=== PATIENT | female | born 1995 | race African-American/Black ===

== ENCOUNTER 2016-10-26 21:08 | Emergency (ER) | payer MEDICAID, OTHER ==
[~2016-10-26] VITALS: Ht 162.6 cm; Wt 81.6 kg
[~2016-10-26 21:08] MED LIST: ADVAIR 100-501 EACH INH; ALBUTEROL SULF8.5 GM INH; ALBUTEROL2.5 MG/3 M INH; AUGMENTIN 875-1 EAC1 ORAL; CYCLOBENZAPRINE10 MG ORAL; FLONASE1 SPRAYS NASAL; IBUPROFEN600 MG ORAL; NORCO 5-325 TA1 EACH ORAL; PREDNISONE20 MG PO; SINGULAIR10 MG ORAL
[2016-10-26 21:15] VITALS: BP 116/70
[2016-10-26] MEDS ORDERED: PREDNISONE20 MG ORAL (21:34)
[2016-10-26] MEDS ORDERED: ALBUTEROL SULF8.5 GM INH (21:34)
[2016-10-26] MEDS ORDERED: ALBUTEROL2.5 MG/3 M HHN (21:34)
[2016-10-26 21:35] VITALS: BP 112/72
--- NOTE | 2016-10-26 21:35 | Emergency Room Report ---
History of Present Illness General Chief Complaint: Asthma Source: Patient Present Illness HPI This is a 20-year-old female with a history of asthma. She has a cold recently and her asthma is acting up. Better with her inhaler and nebulizer machine. She is almost out of her medication. Denies any fever or chills. Denies any nausea vomiting. Worse with exertion. Worse with deep coughing. Denies any other complaint Allergies: Coded Allergies: No Known Allergies (Unverified , 12/15/11) Patient History Past Medical History: see triage record, old chart reviewed Past Surgical History: other Pertinent Family History: none Social History: Denies: smoking Last Menstrual Period: 10/08/16 Now: No Immunizations: other Reviewed Nursing Documentation: PMH: Agreed, PSxH: Agreed Nursing Documentation-PMH Past Medical History: No History, Except For Hx Asthma: Yes Review of Systems Eye: Denies: eye pain, blurred vision ENT: Denies: ear pain, nose congestion, throat swelling Respiratory: Reports: cough, shortness of breath Cardiovascular: Denies: chest pain, palpitations Gastrointestinal: Denies: abdominal pain, diarrhea, nausea, vomiting Musculoskeletal: Denies: back pain, joint pain Skin: Denies: rash Neurological: Denies: headache, numbness Endocrine: Denies: increased thirst, increased urine Hematologic/Lymphatic: Denies: easy bruising All Other Systems: negative except mentioned in HPI Physical Exam Vital Signs Date Time Temp Pulse Resp B/P (MAP) Pulse Ox O2 Delivery O2 Flow Rate FiO2 10/26/16 21:12 98.8 97 20 110/75 98 Room Air vitals normal Sp02 EP Interpretation: reviewed, normal General Appearance: well appearing, no apparent distress, alert Head: normocephalic, atraumatic Eyes: bilateral eye PERRL, bilateral eye EOMI ENT: hearing grossly normal, normal pharynx Neck: full range of motion, supple, no meningismus Respiratory: chest non-tender, lungs clear, normal breath sounds Cardiovascular #1: regular rate, rhythm, no murmur Gastrointestinal: normal bowel sounds, non tender, no mass, no organomegaly, no bruit, non-distended Musculoskeletal: back normal, gait/station normal, normal range of motion Psychiatric: mood/affect normal Skin: warm/dry Medical Decision Making Diagnostic Impression: Primary Impression: Asthma attack Additional Impression: URI (upper respiratory infection) Qualified Codes: J06.9 - Acute upper respiratory infection, unspecified; B97.89 - Other viral agents as the cause of diseases classified elsewhere ER Course Patient presents with asthma exacerbation secondary to viral illness. She's not wheezing right now. We'll refill her medication. Started on steroid. No evidence of pneumonia. We'll discharge home. Last Vital Signs Date Time Temp Pulse Resp B/P (MAP) Pulse Ox O2 Delivery O2 Flow Rate FiO2 10/26/16 21:12 98.8 97 20 110/75 98 Room Air Status: improved Disposition: HOME, SELF-CARE Condition: Stable Scripts Prednisone* (PREDNISONE*) 20 Mg Tablet 60 MG ORAL DAILY, #5 TAB Prov: LUCIUS MEREDITH M.D. 10/26/16 Albuterol Sulfate* (ALBUTEROL SULFATE HHN*) 2.5 Mg/3 Ml Vial.neb 2.5 MG HHN Q4H Y for Shortness of Breath, #25 VIAL Prov: LUCIUS MEREDITH M.D. 10/26/16 Albuterol Sulfate* (ALBUTEROL SULFATE MDI*) 8.5 Gm Hfa.aer.ad 2 PUFF INH Q4H Y for cough/wheezing, #1 EA 0 Refills Prov: LUCIUS MEREDITH M.D. 10/26/16 Patient Instructions: Asthma, Adult Additional Instructions: Followup with your DrМарина in 7 days. Return if symptom worsen. LUCIUS MEREDITH M.D. Oct 26, 2016 21:35
[2016-10-26 21:40] VITALS: BP 112/72
== END 2016-10-26 21:40 | disposition home or self-care (01) ==
LOC: EMR 21:25
DX: J45.901 Unspecified asthma with (acute) exacerbation (principal); J06.9 Acute upper respiratory infection, unspecified
CPT/HCPCS: 99284

== ENCOUNTER 2018-02-05 15:47 | Emergency (ER) | payer MEDICAID ==
[~2018-02-05] VITALS: Ht 165.1 cm; Wt 63.5 kg
[~2018-02-05 15:47] MED LIST changes: +ALBUTEROL2.5 MG/3 M HHN; +PREDNISONE20 MG ORAL
[2018-02-05] MEDS ORDERED: ADVAIR 250-501 EACH INH (15:58)
[2018-02-05 16:00] VITALS: BP 107/61
[2018-02-05] MEDS ORDERED: Methocarbamol 500mg tab ORAL ONE (16:15)
[2018-02-05] MEDS ORDERED: traMADol 50mg tab ORAL ONE (16:15)
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
[2018-02-05 16:47] LABS: APPEARANCE,URINE CLEAR; BILIRUBIN, URINE 1+ (NEGATIVE); COLOR,URINE BROWN; GLUCOSE, URINE (UA) NEGATIVE (NEGATIVE); KETONES,URINE 3+ (NEGATIVE); LEUKOCYTE ESTERASE ,URINE 1+ (NEGATIVE); NITRITE,URINE NEGATIVE (NEGATIVE); PH,URINE 6 (4.5-8.0); PROTEIN,URINE 2+ (NEGATIVE); UROBILINOGEN,URINE 4 MG/DL (0.0-1.0)
[2018-02-05] MEDS ORDERED: LIDOCAINE700 M1 TP (17:42)
[2018-02-05] MEDS ORDERED: ALBUTEROL2.5 MG/3 M INH (17:42)
[2018-02-05] MEDS ORDERED: ROBAXIN500 MG PO (17:42)
[2018-02-05] MEDS ORDERED: PREDNISONE20 MG ORAL (17:42)
[2018-02-05] MEDS ORDERED: ALBUTEROL SULF8.5 GM INH (17:42)
[2018-02-05] MEDS ORDERED: TYLENOL EXTRA500 MG ORAL (17:42)
[2018-02-05 17:49] VITALS: BP 108/65
== END 2018-02-05 17:51 | disposition home or self-care (01) ==
LOC: EMR 16:23
DX: M54.9 Dorsalgia, unspecified (principal); J45.909 Unspecified asthma, uncomplicated
CPT/HCPCS: 81003; 99283

== ENCOUNTER 2018-09-29 14:48 | Emergency (ER) | payer MEDICAID ==
[~2018-09-29] VITALS: Ht 165.1 cm; Wt 64.9 kg
[~2018-09-29 14:48] MED LIST changes: +ADVAIR 250-501 EACH INH; +LIDOCAINE700 M1 TP; +ROBAXIN500 MG PO; +TYLENOL EXTRA500 MG ORAL
--- NOTE | 2018-09-29 15:07 | NUR ---
ED Nurse Note: Patient walked in to ER with her boyfriend due to vaginal bleeding. Stated that 18 weeks , and had sexual intercorse yesterday, after that she started bleed. Patient changed 1 pad over the night. AAO x4, VSS at this time, skin is dry warm to touch.
[2018-09-29 15:45] LABS: APPEARANCE,URINE CLEAR; BILIRUBIN, URINE NEGATIVE (NEGATIVE); COLOR,URINE PALE YELLOW; GLUCOSE, URINE (UA) NEGATIVE (NEGATIVE); KETONES,URINE NEGATIVE (NEGATIVE); LEUKOCYTE ESTERASE ,URINE NEGATIVE (NEGATIVE); NITRITE,URINE NEGATIVE (NEGATIVE); PH,URINE 7 (4.5-8.0); PROTEIN,URINE NEGATIVE (NEGATIVE); UROBILINOGEN,URINE NORMAL MG/DL (0.0-1.0)
--- NOTE | 2018-09-29 15:47 | Emergency Room Report ---
History of Present Illness General Chief Complaint: Complications Source: Patient Present Illness HPI 22 YO Female presents to the ED c/o vaginal bleeding since last night, acute onset after having "rough intercourse" while at 18 weeks . She denies pain. Pt. denies N/V/F/C. Pt. reports using one SA pad last night and bleeding has decreased to spotting now. She is . Denies dysuria, hematuria, frequency or urgency. No other aggravating or relieving factors at this time. She denies cramping/contractions. Allergies: Coded Allergies: No Known Allergies (Unverified , 12/15/11) Patient History Past Medical History: see triage record Past Surgical History: none Pertinent Family History: none Last Menstrual Period: 18 week Now: Yes Reviewed Nursing Documentation: PMH: Agreed; PSxH: Agreed Nursing Documentation-PMH Past Medical History: No History, Except For Hx Asthma: Yes Review of Systems All Other Systems: negative except mentioned in HPI Physical Exam Vital Signs Date Time Temp Pulse Resp B/P (MAP) Pulse Ox O2 Delivery O2 Flow Rate FiO2 09/29/18 14:54 98.8 106 20 119/51 (73) 98 Room Air Sp02 EP Interpretation: reviewed, normal General Appearance: no apparent distress, alert, GCS 15, non-toxic Head: normocephalic, atraumatic Eyes: bilateral eye normal inspection, bilateral eye PERRL ENT: hearing grossly normal, normal voice Neck: full range of motion Respiratory: lungs clear, normal breath sounds, speaking full sentences Cardiovascular #1: regular rate, rhythm Gastrointestinal: normal bowel sounds, non tender, soft, non-distended, no guarding Genitourinary: normal inspection, no CVA tenderness Musculoskeletal: back normal, gait/station normal, normal range of motion, non- tender Neurologic: alert, oriented x3, responsive, motor strength/tone normal, sensory intact, normal gait, speech normal, grossly normal Psychiatric: judgement/insight normal Lymphatic: no adenopathy Medical Decision Making PA Attestation Dr. Collins is my supervising Physician whom patient management has been discussed with. Diagnostic Impression: Primary Impression: Vaginal bleeding in patient at less than 20 weeks gestation Additional Impression: Threatened miscarriage in early ER Course 22 YO Female presents to the ED c/o vaginal bleeding since last night, acute onset after having "rough intercourse" while at 18 weeks . She denies pain. Pt. denies N/V/F/C. Pt. reports using one SA pad last night and bleeding has decreased to spotting now. She is . Denies dysuria, hematuria, frequency or urgency. No other aggravating or relieving factors at this time. She denies cramping/contractions. Ddx considered but are not limited to: Fibroid, ectopic , Fibroid, Spontaneous , Vital signs: are WNL, pt. is afebrile H&PE are most consistent with: spotting during early most likely mechanical in etiology given HPI hx of "rough intercourse" ORDERS: -UA: unremarkable --most indicative of contamination: presence of equal amounts of bacteria and squamous cells, no elevation in inflammatory markers, nitrite negative. -Serum Hcg Quant: 53576 - Blood/RH type and screen- see attached labs - O POSITIVE -Pelvic US complete- normal intrauterine estimated at 17 weeks 2 days gestation. with a FHR of 153 ED INTERVENTIONS: None at this time. DISCHARGE: At this time pt. is stable for d/c to home. Will provide printed patient care instructions, and any necessary prescriptions. Care plan and follow up instructions have been discussed with the patient prior to discharge. Labs Test 09/29/18 15:10 09/29/18 15:20 Urine Color Pale yellow Urine Appearance Clear Urine pH 7 (4.5-8.0) Urine Specific [place] 1.010 (1.005-1.035) Urine Protein Negative (NEGATIVE) Urine Glucose (UA) Negative (NEGATIVE) Urine Ketones Negative (NEGATIVE) Urine Blood 5+ (NEGATIVE) Urine Nitrite Negative (NEGATIVE) Urine Bilirubin Negative (NEGATIVE) Urine Urobilinogen Normal MG/DL (0.0-1.0) Urine Leukocyte Esterase Negative (NEGATIVE) Urine RBC 2-4 /HPF (0 - 2) Urine WBC 0-2 /HPF (0 - 2) Urine Squamous Epithelial Cells Few /LPF (NONE/OCC) Urine Bacteria Occasional /HPF (NONE) White Blood Count 9.1 K/UL (4.8-10.8) Red Blood Count 4.02 M/UL (4.20-5.40) Hemoglobin 13.2 G/DL (12.0-16.0) Hematocrit 37.5 % (37.0-47.0) Mean Corpuscular Volume 93 FL (80-99) Mean Corpuscular Hemoglobin 32.9 PG (27.0-31.0) Mean Corpuscular Hemoglobin Concent 35.3 G/DL (32.0-36.0) Red Cell Distribution Width 10.6 % (11.6-14.8) Platelet Count 233 K/UL (150-450) Mean Platelet Volume 6.4 FL (6.5-10.1) Neutrophils (%) (Auto) 65.6 % (45.0-75.0) Lymphocytes (%) (Auto) 25.3 % (20.0-45.0) Monocytes (%) (Auto) 5.7 % (1.0-10.0) Eosinophils (%) (Auto) 2.4 % (0.0-3.0) Basophils (%) (Auto) 1.0 % (0.0-2.0) Sodium Level 138 MMOL/L (136-145) Potassium Level 3.7 MMOL/L (3.5-5.1) Chloride Level 105 MMOL/L (98-107) Carbon Dioxide Level 25 MMOL/L (21-32) Anion Gap 9 mmol/L (5-15) Blood Urea Nitrogen 8 mg/dL (7-18) Creatinine 0.6 MG/DL (0.55-1.30) Estimat Glomerular Filtration Rate > 60 mL/min (>60) Glucose Level 81 MG/DL (74-106) Calcium Level 9.1 MG/DL (8.5-10.1) CT/MRI/US Diagnostic Results CT/MRI/US Diagnostic Results : Imaging Test Ordered: OB Pelvic US Impression "Impression 17-week 2-day, by average ultrasound measurements, single live IUP. Focal protrusion of the posterior uterus, probably represents a submucosal fibroid, less likely a focal contraction. Follow-up sonography may be useful to see if this persists if clinically indicated, no free cul-de-sac fluid demonstrated. FHR 153". Per official radiology report- Please see report for specific details. Last Vital Signs Date Time Temp Pulse Resp B/P (MAP) Pulse Ox O2 Delivery O2 Flow Rate FiO2 09/29/18 14:54 98.8 106 20 119/51 (73) 98 Room Air Disposition: HOME, SELF-CARE Condition: Stable Referrals: NON PHYSICIAN (PCP) Departure Forms: Return to Work Return to Work Date: Oct 04, 2018 Work Restrictions: No Heavy Lifting, No Prolonged Standing Other Restrictions: May return Sooner if Symptoms have resolved. Return to Full Activity: Oct 04, 2018 Patient Instructions: Vaginal Bleeding During , First Trimester, Easy- to-Read Additional Instructions: Take medications as directed. Hcg Quant: 11101 Follow up with a OBGYN within 3 days, even if your symptoms have resolved. Return sooner to ED if new symptoms occur, or current symptoms become worse. - Please note that this Emergency Department Report was dictated using [employer] technology software, occasionally this can lead to erroneous entry secondary to interpretation by the dictation equipment. Jacqui Wise Sep 29, 2018 15:47
[2018-09-29 15:49] LABS: EOSINOPHILS % (AUTO) 2.4 % (0.0-3.0); HEMATOCRIT 37.5 % (37.0-47.0); HEMOGLOBIN 13.2 G/DL (12.0-16.0); LYMPHOCYTES % (AUTO) 25.3 % (20.0-45.0); MEAN CORPUSCULAR VOLUME 93 FL (80-99); MONOCYTES % (AUTO) 5.7 % (1.0-10.0); NEUTROPHILS % (AUTO) 65.6 % (45.0-75.0); PLATELET COUNT 233 K/UL (150-450); RED BLOOD COUNT 4.02 M/UL (4.20-5.40); RED CELL DISTRIBUTION WIDTH 10.6 % (11.6-14.8); WHITE BLOOD COUNT 9.1 K/UL (4.8-10.8)
[2018-09-29 16:02] LABS: ANION GAP 9 mmol/L (5-15); BLOOD UREA NITROGEN 8 mg/dL (7-18); CALCIUM 9.1 MG/DL (8.5-10.1); CARBON DIOXIDE 25 MMOL/L (21-32); CHLORIDE 105 MMOL/L (98-107); CREATININE 0.6 MG/DL (0.55-1.30); POTASSIUM 3.7 MMOL/L (3.5-5.1); SODIUM 138 MMOL/L (136-145)
--- NOTE | 2018-09-29 16:35 | Diagnostic Imaging Report ---
Indication: patient, vaginal bleeding Technique: Transabdominal and transvaginal images of the uterus and fetus. Doppler interrogation as well Comparison: none Findings: There is a single live intrauterine . This demonstrates cephalic presentation. Placenta is anterior, fundal, clears the internal cervical os. There is a focal bulge in the posterior uterine wall, on the wall opposite of the placenta. This demonstrates internal vascularity, measures approximate 4 cm in diameter. Cervix is closed, endocervical canal measuring 3.2 cm in length. Grossly normal amniotic fluid volume. There is positive heart activity, heart rate 153 bpm measurements as follows: Biparietal diameter 4 cm, 18 weeks one day; head circumference 14.2 cm, 17 weeks 3 days; abdominal circumference 10.5 cm, 16 weeks 3 days; femur length 2.4 cm, 17 weeks one day. Estimated gestational age by average ultrasound measurements is 17 weeks 2 days. Estimated date of delivery 03/07/2019. Estimated gestational age by dates is 18 weeks 2 days. Only a limited assessment of the anatomy was performed, due to early stage of and the emergent nature of the exam. Normal four-chamber heart, three-vessel cord, spine, cord insertion are demonstrated. Neither ovary could be visualized. No free cul-de-sac fluid demonstrated Impression: 17 week 2 day, by average of ultrasound measurements, single live intrauterine Focal protrusion of the posterior uterus, probably represents a submucosal fibroid, less likely a focal contraction. Follow-up sonography may be useful to see if this persists if clinically indicated
[2018-09-29 17:12] VITALS: BP 119/51
--- NOTE | 2018-09-29 17:12 | NUR ---
ED Nurse Note: Pt cleared by health care Provider for discharge. DC instructions/prescription was given and explained to pt and verbalized understanding of teachings. All medical deviecs such as ID band removed. Pt is AAO x4, ambulatory and left with all personal belongings.
== END 2018-09-29 17:13 | disposition home or self-care (01) ==
LOC: EMR 15:37
DX: O20.0 Threatened abortion (principal); O20.9 Hemorrhage in early pregnancy, unspecified; J45.909 Unspecified asthma, uncomplicated; Z3A.17 17 weeks gestation of pregnancy
CPT/HCPCS: 36415; 76805; 80048; 81003; 84702; 85025; 86900; 86901; 99284

== ENCOUNTER 2019-06-18 08:26 | Emergency (ER) | payer MEDICAID ==
[~2019-06-18] VITALS: Ht 167.6 cm; Wt 77.1 kg
[2019-06-18 08:39] VITALS: BP 122/53
--- NOTE | 2019-06-18 08:46 | NUR ---
ED Nurse Note: Pt from home walked in due to coughing and wheezing x 2 days. Hx of asthma. Noted occasional dry coughing. AAO x4 ambulatory with non labored breathing.
[2019-06-18] MEDS ORDERED: PREDNISONE20 MG ORAL (08:53)
[2019-06-18] MEDS ORDERED: ADVAIR 250-501 EACH INH (08:53)
[2019-06-18] MEDS ORDERED: ALBUTEROL2.5 MG/3 M HHN (08:53)
[2019-06-18] MEDS ORDERED: SINGULAIR10 MG ORAL (08:53)
[2019-06-18] MEDS ORDERED: Albuterol/Ipratropium 3ml neb HHN ONE (09:00)
--- NOTE | 2019-06-18 09:05 | NUR ---
ED Nurse Note: Collected urine specimen then sent.
--- NOTE | 2019-06-18 09:30 | NUR ---
ED Nurse Note: RT at the tent for breathing treatment.
--- NOTE | 2019-06-18 09:48 | Emergency Room Report ---
History of Present Illness General Chief Complaint: Asthma Source: Patient, Medical Record Present Illness HPI Is a 23-year-old female presents after increased nonproductive cough. Prior history of asthma. Reports having increased use of her inhaler. Previously had similar symptoms in the past. Denies any fever or body aches. Denies any weakness. Had run out of her Singulair as well as Advair. Denies any leg pain or swelling. Denies shortness of breath. Denies being . Had previous episode similarly which she required prednisone treatment. Denies any productive cough. No recent fevers or chills. Patient denies breast-feeding Allergies: Coded Allergies: No Known Allergies (Unverified , 12/15/11) COVID-19 Screening Contact w/high risk pt: No Recent Travel to affected area: No Experienced COVID-19 symptoms?: Yes COVID-19 symptoms experienced: Cough Patient History Past Medical History: see triage record, asthma Last Menstrual Period: 05/31/19 Now: No Reviewed Nursing Documentation: PMH: Agreed; PSxH: Agreed Nursing Documentation-PMH Past Medical History: No History, Except For Hx Asthma: Yes Review of Systems All Other Systems: negative except mentioned in HPI Physical Exam Vital Signs Date Time Temp Pulse Resp B/P (MAP) Pulse Ox O2 Delivery O2 Flow Rate FiO2 06/18/19 08:39 98.8 101 19 122/53 (76) 92 Room Air 06/18/19 09:20 21 General Appearance: well appearing, no apparent distress, alert, GCS 15 Head: normocephalic, atraumatic ENT: hearing grossly normal, normal voice Neck: full range of motion, supple Respiratory: no respiratory distress, speaking full sentences, wheezing, other - Good air movement Cardiovascular #1: normal peripheral pulses, regular rate, rhythm, no edema Gastrointestinal: normal inspection Musculoskeletal: normal inspection, gait/station normal, no calf tenderness Neurologic: alert, motor strength/tone normal, historic interpreter III-XII nml as tested, oriented x3, normal gait Psychiatric: normal inspection, mood/affect normal Skin: no rash Medical Decision Making Diagnostic Impression: Primary Impression: Asthma attack ER Course Patient presented for cough. Differential diagnosis include was not limited to bronchitis, pneumonia, coronavirus infection, asthma exacerbation among others. Patient has a benign exam and does not appear to require any imaging or laboratory testing at this time. Patient's test was noted to be negative. Patient given oral prednisone as well as breathing treatment with improvement. She is given refills of her medications. Patient does not appear to be in any respiratory distress. test was negative. Patient denies current breast-feeding. She advised to return if worse. Patient was advised to return if any worsening of condition or other concerns. The patient is advised to follow up with primary care doctor in 1-2 days. Patient is advised to return if any worsening condition or if any changes in status that are concerning. This report is dictated with [employer] software which may occasionally lead to discrepancies related to use of this software. Last Vital Signs Date Time Temp Pulse Resp B/P (MAP) Pulse Ox O2 Delivery O2 Flow Rate FiO2 06/18/19 09:20 104 24 98 Room Air 21 101 22 93 06/18/19 08:39 98.8 122/53 Status: improved Disposition: HOME, SELF-CARE Condition: Stable Scripts Albuterol Sulfate* (ALBUTEROL SULFATE HHN*) 2.5 Mg/3 Ml Vial.neb 2.5 MG HHN Q4H PRN for Shortness of Breath, #25 VIAL Prov: Deshaun Conway MD 06/18/19 Prednisone* (PREDNISONE*) 20 Mg Tablet 40 MG ORAL DAILY, #10 TAB Prov: Deshaun Conway MD 06/18/19 Fluticasone/Salmeterol (Advair 250-50 Diskus) 1 Each Blst.w.dev 1 PUFF INH EVERY 12 HOURS, #1 EA Prov: Deshaun Conway MD 06/18/19 Montelukast Sodium* (SINGULAIR*) 10 Mg Tablet 10 MG ORAL DAILY, #14 TAB Prov: Deshaun Conway MD 06/18/19 Referrals: NON PHYSICIAN (PCP) Patient Instructions: Asthma, Adult Additional Instructions: Follow up with your doctor for recheck in 1-2 days. Return if worse. Deshaun Conway MD June 18, 2019 09:48
[2019-06-18 09:55] VITALS: BP 134/72
--- NOTE | 2019-06-18 09:55 | NUR ---
ER DISCHARGE NOTE: Patient is cleared to be discharged per ERMD, pt is aox4, on room air, with stable vital signs. pt was given dc and prescription instructions, pt was able to verbalize understanding, pt id band removed. pt is able to ambulate with steady gait. pt took all belongings.
== END 2019-06-18 09:55 | disposition home or self-care (01) ==
LOC: EMR 08:52
DX: J45.901 Unspecified asthma with (acute) exacerbation (principal)
CPT/HCPCS: 81025; J7512; Z7502; 99284; J7620